=== PATIENT | female | born 1935 | race African-American/Black ===

== ENCOUNTER 2017-06-10 21:09 | Emergency (ER) | payer MEDICARE, OTHER ==
[~2017-06-10] VITALS: Ht 167.6 cm; Wt 72.0 kg
[~2017-06-10 21:09] MED LIST: CARD12 PO; CLON0.2T PO; FLUT1DIS3 INH; POTASSIUM; VITAMIN D
[2017-06-10 23:53] LABS: CLARITY URINE CLEAR (CLEAR); COLOR URINE YELLOW (YELLOW); GLUCOSE URINE NEGATIVE (NEGATIVE); KETONES URINE NEGATIVE (NEGATIVE); LEUKOCYTE ESTERASE URINE NEGATIVE (NEGATIVE); NITRITE URINE NEGATIVE (NEGATIVE); OCCULT BLOOD URINE TRACE (NEGATIVE); PH URINE 5.5 (4.5-8.0); PROTEIN URINE NEGATIVE (NEGATIVE); SPECIFIC GRAVITY URINE 1.011 (1.005-1.030)
[2017-06-11 00:02] LABS: BASOPHILS % 0.9 % (0.0-2.0); EOSINOPHILS % 4.4 % (0.0-5.0); HEMATOCRIT. 36.6 % (36.0-48.0); HEMOGLOBIN. 11.7 g/dL (12.0-16.0); LYMPHOCYTES % 24.2 % (20.0-50.0); MEAN CORPUSCULAR HEMOGLOBIN 24.2 pg (28.0-32.0); MEAN CORPUSCULAR VOLUME 75.7 fL (81.0-99.0); MEAN PLATELET VOLUME 8.3 fl (7.4-10.4); MONOCYTES % 10.1 % (2.0-8.0); NEUTROPHILS % 60.4 % (40.0-76.0); PLATELET 231 x1000/uL (130-400); RED BLOOD CELL COUNT 4.83 mill/uL (4.2-5.4); RED CELL DISTRIBUTION WIDTH 13.5 % (11.6-14.6)
[2017-06-11 00:15] LABS: CHLORIDE 107 mEq/L (98-107)
[2017-06-11 00:24] LABS: CARBON DIOXIDE 25 mEq/L (21-32); ETHANOL BLOOD < 10 mg/dL
[2017-06-11 00:24] LABS: *AMPHETAMINES SCREEN URINE NEGATIVE (NEGATIVE); *BARBITURATES SCREEN URINE NEGATIVE (NEGATIVE); *BENZODIAZEPINES SCREEN URINE NEGATIVE (NEGATIVE); *COCAINE SCREEN URINE NEGATIVE (NEGATIVE); CANNABINOID URINE SCREEN NEGATIVE (NEGATIVE); METHADONE URINE SCREEN NEGATIVE (NEGATIVE); OPIATES URINE SCREEN NEGATIVE (NEGATIVE); PHENCYCLIDINE URINE SCREEN NEGATIVE (NEGATIVE)
[2017-06-11 16:14] VITALS: BP 125/60
== END 2017-06-11 16:16 | disposition home or self-care (01) ==
LOC: ER 21:12
DX: F03.90 Unspecified dementia, unspecified severity, without behavioral disturbance, psychotic disturbance, mood disturbance, and anxiety (principal); R41.0 Disorientation, unspecified; I10 Essential (primary) hypertension; J45.909 Unspecified asthma, uncomplicated; Z88.5 Allergy status to narcotic agent; Z88.8 Allergy status to other drugs, medicaments and biological substances; Z71.89 Other specified counseling
CPT/HCPCS: 36415; 70450; 80053; 80305; 81001; 85025; 86592; 99285; G0482

== ENCOUNTER 2018-04-24 19:54 | Emergency (ER) | payer OTHER ==
[~2018-04-24] VITALS: Ht 175.3 cm; Wt 79.0 kg
[~2018-04-24 19:54] MED LIST changes: +AMLO10TA80 PO; +BENA20TA10 PO; +CHOL500010 PO; +DONE10TA36 PO; +FLUT1DIS3 IH; +MIRT15TA6 PO; -POTASSIUM; -VITAMIN D
[2018-04-24] MEDS ORDERED: SODIUM CHLORIDE 0.9% 1,000 ML IV ONE (20:07)
[2018-04-24] MEDS ORDERED: PANTOPRAZOLE SODIUM 40 MG/VIAL IV STA (20:07)
[2018-04-24] MEDS ORDERED: KETOROLAC 30MG/ML VIAL IV STA (20:07)
[2018-04-24] MEDS ORDERED: ONDANSETRON HCL 4MG/2ML INJ IV STA (20:07)
[2018-04-24 21:11] LABS: CHLORIDE 109 mEq/L (98-107)
[2018-04-24 21:13] LABS: PROTHROMBIN TIME 10.2 sec (9.1-11.1)
[2018-04-24 22:03] LABS: HEMATOCRIT. 37.9 % (36.0-48.0); HEMOGLOBIN. 11.6 g/dL (12.0-16.0); MEAN CORPUSCULAR VOLUME 78.1 fL (81.0-99.0); MEAN PLATELET VOLUME 8.8 fl (7.4-10.4); PLATELET 180 x1000/uL (130-400); RED BLOOD CELL COUNT 4.86 mill/uL (4.2-5.4); RED CELL DISTRIBUTION WIDTH 13.2 % (11.6-14.6)
[2018-04-24 22:28] LABS: PLATELET ESTIMATE NORMAL
[2018-04-24 22:49] LABS: CLARITY URINE CLEAR (CLEAR); COLOR URINE DARK YELLOW (YELLOW); KETONES URINE NEGATIVE (NEGATIVE); LEUKOCYTE ESTERASE URINE NEGATIVE (NEGATIVE); NITRITE URINE NEGATIVE (NEGATIVE); OCCULT BLOOD URINE NEGATIVE (NEGATIVE); PH URINE 5.5 (4.5-8.0); PROTEIN URINE NEGATIVE (NEGATIVE); SPECIFIC GRAVITY URINE 1.018 (1.005-1.030)
[2018-04-24 23:37] VITALS: BP 126/78
== END 2018-04-24 23:46 | disposition home or self-care (01) ==
LOC: EDBD 20:10 → ER 20:10
DX: R19.7 Diarrhea, unspecified (principal); R10.33 Periumbilical pain; R11.2 Nausea with vomiting, unspecified; R07.9 Chest pain, unspecified; E78.00 Pure hypercholesterolemia, unspecified; I10 Essential (primary) hypertension; Z88.5 Allergy status to narcotic agent; Z79.899 Other long term (current) drug therapy
CPT/HCPCS: 36415; 74176; 80053; 81003; 83690; 85025; 85610; 93005; 96374; 96375; 99285; C9113; J1885; J2405; J7030; 99291

== ENCOUNTER 2018-07-23 03:04 | Emergency (ER) | payer OTHER ==
[~2018-07-23] VITALS: Ht 167.6 cm; Wt 73.0 kg
[2018-07-23 04:51] LABS: HEMATOCRIT. 36.9 % (36.0-48.0); HEMOGLOBIN. 11.4 g/dL (12.0-16.0); MEAN CORPUSCULAR HEMOGLOBIN 23.7 pg (28.0-32.0); MEAN PLATELET VOLUME 8.6 fl (7.4-10.4); PLATELET 229 x1000/uL (130-400); RED CELL DISTRIBUTION WIDTH 13.3 % (11.6-14.6)
[2018-07-23 04:53] LABS: CHLORIDE 106 mEq/L (98-107)
[2018-07-23 05:45] VITALS: BP 108/62
[2018-07-23 07:05] LABS: CLARITY URINE CLOUDY (CLEAR); COLOR URINE YELLOW (YELLOW); KETONES URINE TRACE (NEGATIVE); LEUKOCYTE ESTERASE URINE 1+ (NEGATIVE); NITRITE URINE NEGATIVE (NEGATIVE); OCCULT BLOOD URINE NEGATIVE (NEGATIVE); PH URINE 5.5 (4.5-8.0); PROTEIN URINE NEGATIVE (NEGATIVE); SPECIFIC GRAVITY URINE 1.028 (1.005-1.030)
[2018-07-23 10:00] LABS: PLATELET ESTIMATE NORMAL
== END 2018-07-23 05:45 | disposition home or self-care (01) ==
LOC: ER 03:04
DX: R41.82 Altered mental status, unspecified (principal); E78.00 Pure hypercholesterolemia, unspecified; I10 Essential (primary) hypertension; E16.2 Hypoglycemia, unspecified; F03.90 Unspecified dementia, unspecified severity, without behavioral disturbance, psychotic disturbance, mood disturbance, and anxiety; Z79.899 Other long term (current) drug therapy; Z88.5 Allergy status to narcotic agent; Z88.8 Allergy status to other drugs, medicaments and biological substances
CPT/HCPCS: 36415; 71045; 80048; 82962; 99284

== ENCOUNTER 2019-02-20 11:25 | Inpatient (IN) | payer OTHER ==
[~2019-02-20] VITALS: Ht 162.6 cm; Wt 61.7 kg
[2019-02-20] MEDS ORDERED: TETANUS, DIPHTHERIA, PERTUSSIS VAC/PF 0.5ML (>7YR OLD) IM ONE (13:00)
[2019-02-20 13:33] LABS: BASOPHILS % 0.8 % (0.0-2.0); EOSINOPHILS % 0.8 % (0.0-5.0); HEMATOCRIT. 38.9 % (36.0-48.0); HEMOGLOBIN. 12.3 g/dL (12.0-16.0); LYMPHOCYTES % 14.4 % (20.0-50.0); MEAN CORPUSCULAR HEMOGLOBIN 24.6 pg (28.0-32.0); MEAN CORPUSCULAR VOLUME 78.1 fL (81.0-99.0); MEAN PLATELET VOLUME 8.6 fl (7.4-10.4); MONOCYTES % 7.7 % (2.0-8.0); NEUTROPHILS % 76.3 % (40.0-76.0); PLATELET 236 x1000/uL (130-400); RED BLOOD CELL COUNT 4.98 mill/uL (4.2-5.4); RED CELL DISTRIBUTION WIDTH 13.6 % (11.6-14.6)
[2019-02-20 13:38] LABS: CHLORIDE 107 mEq/L (98-107)
[2019-02-20 15:25] LABS: CLARITY URINE CLEAR (CLEAR); COLOR URINE YELLOW (YELLOW); KETONES URINE 1+ (NEGATIVE); LEUKOCYTE ESTERASE URINE NEGATIVE (NEGATIVE); NITRITE URINE NEGATIVE (NEGATIVE); OCCULT BLOOD URINE TRACE (NEGATIVE); PH URINE 5.5 (4.5-8.0); PROTEIN URINE NEGATIVE (NEGATIVE); SPECIFIC GRAVITY URINE 1.021 (1.005-1.030)
[2019-02-20] MEDS ORDERED: HYDROCODONE/ACETAMINOPHEN 5/325MG TABLET PO PRN (18:30)
[2019-02-20] MEDS ORDERED: IPRATROPIUM/ALBUTEROL 0.5-3(2.5)MG/3ML NEB INH PRN (18:30)
[2019-02-20] MEDS ORDERED: ACETAMINOPHEN 325MG TABLET PO PRN (18:30)
[2019-02-20] MEDS ORDERED: CLONIDINE 0.1MG TABLET PO PRN (18:30)
[2019-02-20] MEDS ORDERED: ONDANSETRON HCL 4MG/2ML INJ IV PRN (18:30)
[2019-02-20 21:04] VITALS: BP 129/66
[2019-02-20 21:14] VITALS: BP 129/66
[2019-02-20] MEDS ORDERED: SODIUM CHLORIDE 0.45% 1,000 ML IV SCH (22:15)
[2019-02-21 00:05] VITALS: BP 108/69
[2019-02-21 04:00] VITALS: BP 135/65
[2019-02-21 08:16] VITALS: BP 103/67
[2019-02-21] MEDS ORDERED: ENOXAPARIN 40MG/0.4ML SYR SUBCUT SCH (09:00)
[2019-02-21 09:17] LABS: BASOPHILS % 0.7 % (0.0-2.0); EOSINOPHILS % 2.1 % (0.0-5.0); HEMATOCRIT. 38.2 % (36.0-48.0); LYMPHOCYTES % 27.9 % (20.0-50.0); MEAN CORPUSCULAR HEMOGLOBIN 24.3 pg (28.0-32.0); MEAN CORPUSCULAR VOLUME 77.2 fL (81.0-99.0); MEAN PLATELET VOLUME 8.8 fl (7.4-10.4); MONOCYTES % 10.6 % (2.0-8.0); NEUTROPHILS % 58.7 % (40.0-76.0); PLATELET 212 x1000/uL (130-400); RED BLOOD CELL COUNT 4.95 mill/uL (4.2-5.4); RED CELL DISTRIBUTION WIDTH 13.6 % (11.6-14.6)
[2019-02-21 09:29] LABS: CHLORIDE 106 mEq/L (98-107)
[2019-02-21 09:39] LABS: LDL CHOLESTEROL 90 mg/dL (5-100)
[2019-02-21 09:41] LABS: HDL CHOLESTEROL 83 mg/dL (40-59); T4 FREE 0.91 ng/dL (0.76-1.46)
[2019-02-21] MEDS ORDERED: POTASSIUM CHLORIDE 20MEQ TABLET SR PO NR (10:00)
[2019-02-21] MEDS ORDERED: PROAIR HFA INH (10:23)
[2019-02-21] MEDS ORDERED: RISP1TAB26 PO (10:23)
[2019-02-21] MEDS ORDERED: DOCU-272 MT (10:23)
[2019-02-21] MEDS ORDERED: POTASSIUM CHL PO (10:23)
[2019-02-21] MEDS ORDERED: CEPHALEXIN 250MG CAPSULE PO SCH (10:30)
[2019-02-21 12:16] VITALS: BP 122/62
[2019-02-21 16:13] VITALS: BP 132/66
[2019-02-21 16:24] VITALS: BP 132/66
== END 2019-02-21 18:40 | disposition home health service (06) | DRG 689 ==
LOC: ER 11:25 → EDBEDREQ 17:26 → EDBEDREQTM 17:26 → EDBEDREQ 17:31 → EDBEDREQSVC 17:49 → 6WST 17:49 → EDBEDREQ 17:49 → ENRESERV 18:24 → 6WST 22:07
PROVIDERS: ADMIT Internal Medicine; ATTEND Internal Medicine
DX: N39.0 Urinary tract infection, site not specified (principal); G93.41 Metabolic encephalopathy; E87.6 Hypokalemia; F03.90 Unspecified dementia, unspecified severity, without behavioral disturbance, psychotic disturbance, mood disturbance, and anxiety; I10 Essential (primary) hypertension; S80.212A Abrasion, left knee, initial encounter; Z79.899 Other long term (current) drug therapy; Z96.642 Presence of left artificial hip joint; Z88.6 Allergy status to analgesic agent; W18.30XA Fall on same level, unspecified, initial encounter; Y92.009 Unspecified place in unspecified non-institutional (private) residence as the place of occurrence of the external cause; Z86.73 Personal history of transient ischemic attack (TIA), and cerebral infarction without residual deficits; Y93.89 Activity, other specified; Y99.8 Other external cause status
CPT/HCPCS: 36415; 71045; 72170; 73562; 80061; 81003; 83735; 83880; 84439; 84443; 84484; 90471; 90715; 93005; 93306; 93880; 97162; 99285; J1650

== ENCOUNTER 2019-05-05 10:00 | Inpatient (IN) | payer OTHER ==
[~2019-05-05] VITALS: Ht 165.1 cm; Wt 57.2 kg
[~2019-05-05 10:00] MED LIST changes: -AMLO10TA80 PO; -BENA20TA10 PO; -CARD12 PO; -CHOL500010 PO; -CLON0.2T PO; +DOCU-272 MT; -FLUT1DIS3 IH; -MIRT15TA6 PO; +POTASSIUM CHL PO; +PROAIR HFA INH; +RISP1TAB26 PO
[2019-05-05] MEDS ORDERED: SODIUM CHLORIDE 0.9% 1,000 ML IV ONE (10:15)
[2019-05-05 11:10] LABS: BASOPHILS % 1.6 % (0.0-2.0); EOSINOPHILS % 2.5 % (0.0-5.0); HEMATOCRIT. 40.3 % (36.0-48.0); HEMOGLOBIN. 12.7 g/dL (12.0-16.0); LYMPHOCYTES % 22.1 % (20.0-50.0); MEAN CORPUSCULAR HEMOGLOBIN 24.8 pg (28.0-32.0); MEAN CORPUSCULAR VOLUME 78.9 fL (81.0-99.0); MEAN PLATELET VOLUME 8.9 fl (7.4-10.4); MONOCYTES % 9.6 % (2.0-8.0); NEUTROPHILS % 64.2 % (40.0-76.0); PLATELET 230 x1000/uL (130-400); RED BLOOD CELL COUNT 5.11 mill/uL (4.2-5.4); RED CELL DISTRIBUTION WIDTH 13.7 % (11.6-14.6)
[2019-05-05 11:19] LABS: CHLORIDE 105 mEq/L (98-107)
[2019-05-05 14:40] LABS: CLARITY URINE CLEAR (CLEAR); COLOR URINE YELLOW (YELLOW); KETONES URINE NEGATIVE (NEGATIVE); LEUKOCYTE ESTERASE URINE NEGATIVE (NEGATIVE); NITRITE URINE NEGATIVE (NEGATIVE); OCCULT BLOOD URINE NEGATIVE (NEGATIVE); PH URINE 7.5 (4.5-8.0); PROTEIN URINE NEGATIVE (NEGATIVE); SPECIFIC GRAVITY URINE 1.012 (1.005-1.030)
[2019-05-05 21:00] VITALS: BP 124/55
[2019-05-05] MEDS ORDERED: DEXT 5% WATER + KCL 20MEQ/L 1,000 ML IV SCH (23:00)
[2019-05-05 23:05] VITALS: BP 124/55
[2019-05-05] MEDS: POTASSIUM CHLORIDE INJ 20 MEQ in DEXTROSE 5% WATER 1,000 ML IV SCH (23:56)
[2019-05-06] VITALS: BP 142/63
[2019-05-06] MEDS ORDERED: HYDROMORPHONE HCL/PF 2MG/ML CPJ IV PRN (02:45)
[2019-05-06] MEDS ORDERED: LORAZEPAM 2MG/ML CPJ IV PRN (02:45)
[2019-05-06 04:00] VITALS: BP 122/53
[2019-05-06 07:50] LABS: HEMATOCRIT. 37.1 % (36.0-48.0); HEMOGLOBIN. 11.4 g/dL (12.0-16.0); MEAN CORPUSCULAR HEMOGLOBIN 24.7 pg (28.0-32.0); MEAN CORPUSCULAR VOLUME 80.4 fL (81.0-99.0); PLATELET 191 x1000/uL (130-400); RED BLOOD CELL COUNT 4.61 mill/uL (4.2-5.4); RED CELL DISTRIBUTION WIDTH 13.7 % (11.6-14.6)
[2019-05-06 07:56] LABS: CHLORIDE 109 mEq/L (98-107)
[2019-05-06 08:00] VITALS: BP 132/66
[2019-05-06] MEDS: ENOXAPARIN 40MG/0.4ML SYR SUBCUT SCH (10:42)
[2019-05-06 12:00] VITALS: BP 139/74
[2019-05-06] MEDS: POTASSIUM CHLORIDE INJ 20 MEQ in DEXTROSE 5% WATER 1,000 ML IV SCH (13:23)
[2019-05-06 14:28] LABS: PLATELET ESTIMATE NORMAL
[2019-05-06] MEDS ORDERED: IPRATROPIUM/ALBUTEROL 0.5-3(2.5)MG/3ML NEB HHN PRN (15:00)
[2019-05-06] MEDS ORDERED: LACTULOSE 20G/30ML UDC PO PRN (15:00)
[2019-05-06] MEDS ORDERED: HYDRALAZINE 20MG/ML VIAL IV PRN (15:00)
[2019-05-06] MEDS ORDERED: HYDROCODONE/ACETAMINOPHEN 5/325MG TABLET PO PRN (15:00)
[2019-05-06 15:42] LABS: BG CARBOXYHEMOGLOBIN 1.2 % (0.5-1.5); BG DEOXYHEMOGLOBIN 2.8 % (0.0-5.0); BG HCO3 ACT 26.4 mmol/L (22.0-26.0); BG METHEMOGLOBIN 0.2 % (0.0-1.5); BG OXYGEN SATURATION 97.2 % (92.0-98.5); BG OXYHEMOGLOBIN 95.8 % (94.0-97.0); BG PCO2 40.3 mmHg (35.0-45.0); BG PH 7.434 (7.350-7.450); BG PO2 86.1 mmHg (75.0-100.0); BG SAMPLE SITE RIGHT RADIAL; BG TOTAL HEMOGLOBIN 12.8 g/dL (12.0-18.0); BG VENT MODE ROOM AIR
[2019-05-06 16:00] VITALS: BP 128/79
[2019-05-06] MEDS: LORAZEPAM 2MG/ML CPJ IV PRN (17:07)
[2019-05-06 20:00] VITALS: BP 154/82
[2019-05-06] MEDS: DIPHENHYDRAMINE 50MG/ML VIAL IV PRN (20:03)
[2019-05-07] MEDS: POTASSIUM CHLORIDE INJ 20 MEQ in DEXTROSE 5% WATER 1,000 ML IV SCH ×2 (00:11→17:12)
[2019-05-07] MEDS: DIPHENHYDRAMINE 50MG/ML VIAL IV PRN ×2 (03:21→20:28)
[2019-05-07 04:00] VITALS: BP 161/86
[2019-05-07] MEDS: LORAZEPAM 2MG/ML CPJ IV PRN (04:29)
[2019-05-07 08:00] VITALS: BP 130/68
[2019-05-07 12:00] VITALS: BP 128/79
[2019-05-07] MEDS ORDERED: ACETAMINOPHEN 650MG SUPP PR PRN (12:30)
[2019-05-07] MEDS ORDERED: ACETAMINOPHEN 325MG TABLET PO PRN (12:30)
[2019-05-07] MEDS ORDERED: TRAMADOL 50MG TABLET PO PRN (12:30)
[2019-05-07 16:00] VITALS: BP 118/70
[2019-05-07] MEDS: ENOXAPARIN 40MG/0.4ML SYR SUBCUT SCH (16:42)
[2019-05-07 16:53] LABS: BG BASE EXCESS 0.7 mmol/L (-2.0-2.0); BG DEOXYHEMOGLOBIN 2.9 % (0.0-5.0); BG FRACTION INSPIRED OXYGEN 21; BG HCO3 ACT 24.4 mmol/L (22.0-26.0); BG METHEMOGLOBIN 0.3 % (0.0-1.5); BG OXYGEN SATURATION 97.1 % (92.0-98.5); BG OXYHEMOGLOBIN 95.8 % (94.0-97.0); BG PCO2 36.1 mmHg (35.0-45.0); BG PH 7.448 (7.350-7.450); BG PO2 85.9 mmHg (75.0-100.0); BG SAMPLE SITE RIGHT BRACHIAL; BG TOTAL HEMOGLOBIN 13.2 g/dL (12.0-18.0); BG VENT MODE ROOM AIR
[2019-05-07 17:57] LABS: HEMATOCRIT 43.9 % (36.0-48.0); HEMOGLOBIN 13.7 g/dL (12.0-16.0); MEAN CORPUSCULAR HEMOGLOBIN 24.5 pg (28.0-32.0); MEAN CORPUSCULAR VOLUME 78.5 fL (81.0-99.0); PLATELET 231 x1000/uL (130-400); RED BLOOD CELL COUNT 5.59 mill/uL (4.2-5.4); RED CELL DISTRIBUTION WIDTH 13.8 % (11.6-14.6)
[2019-05-07] MEDS ORDERED: LORAZEPAM 2MG/ML CPJ IV SCH (18:00)
[2019-05-07 18:06] LABS: CHLORIDE 104 mEq/L (98-107)
[2019-05-07 18:13] LABS: LDL CHOLESTEROL 109 mg/dL (5-100)
[2019-05-07 18:15] LABS: HDL CHOLESTEROL 92 mg/dL (40-59); T4 FREE 1.09 ng/dL (0.76-1.46)
[2019-05-07 20:00] VITALS: BP 138/65
[2019-05-08] VITALS: BP 135/97
[2019-05-08 04:00] VITALS: BP 137/77
[2019-05-08] MEDS: DIPHENHYDRAMINE 50MG/ML VIAL IV PRN (04:52)
[2019-05-08 07:35] LABS: CHLORIDE 103 mEq/L (98-107)
[2019-05-08 07:37] LABS: HEMATOCRIT 41.6 % (36.0-48.0); HEMOGLOBIN 13.5 g/dL (12.0-16.0); PLATELET 254 x1000/uL (130-400); RED CELL DISTRIBUTION WIDTH 13.5 % (11.6-14.6)
[2019-05-08 08:00] VITALS: BP 150/90
[2019-05-08 12:00] VITALS: BP 143/79
[2019-05-08] MEDS ORDERED: ATOR10TA MT (14:13)
[2019-05-08 16:00] VITALS: BP 112/51
[2019-05-08] MEDS: ENOXAPARIN 40MG/0.4ML SYR SUBCUT SCH (17:05)
== END 2019-05-08 18:58 | disposition home or self-care (01) | DRG 70 ==
LOC: ER 10:00 → 7WST 16:05 → EDBEDREQ 16:13 → EDBEDREQTM 16:15 → ENRESERV 20:01
PROVIDERS: ADMIT Internal Medicine; ATTEND Internal Medicine
DX: G93.41 Metabolic encephalopathy (principal); I50.33 Acute on chronic diastolic (congestive) heart failure; G90.8 Other disorders of autonomic nervous system; E86.0 Dehydration; F03.90 Unspecified dementia, unspecified severity, without behavioral disturbance, psychotic disturbance, mood disturbance, and anxiety; I10 Essential (primary) hypertension; I27.20 Pulmonary hypertension, unspecified; I44.0 Atrioventricular block, first degree; E03.9 Hypothyroidism, unspecified; E78.5 Hyperlipidemia, unspecified; J45.909 Unspecified asthma, uncomplicated; Z79.899 Other long term (current) drug therapy; Z88.5 Allergy status to narcotic agent; Z88.8 Allergy status to other drugs, medicaments and biological substances
CPT/HCPCS: 36415; 36600; 70551; 71045; 80048; 80061; 81003; 82140; 82375; 82805; 82962; 84439; 84443; 84484; 85027; 92610; 93005; 95816; 99285; C1893; J0360; J1200; J1650; J2060; J3480; J7030; J7060; J7070

== ENCOUNTER 2019-06-11 16:29 | Emergency (ER) | payer OTHER ==
[~2019-06-11] VITALS: Ht 162.6 cm; Wt 65.0 kg
[~2019-06-11 16:29] MED LIST changes: +ATOR10TA MT; -DONE10TA36 PO; -POTASSIUM CHL PO
[2019-06-11] MEDS ORDERED: SODIUM CHLORIDE 0.9% 1,000 ML IV ONE (17:29)
[2019-06-11] MEDS ORDERED: ONDANSETRON HCL 4MG/2ML INJ IV STA (17:29)
[2019-06-11 17:52] LABS: HEMATOCRIT. 37.7 % (36.0-48.0); HEMOGLOBIN. 12.1 g/dL (12.0-16.0); MEAN CORPUSCULAR VOLUME 78.3 fL (81.0-99.0); MEAN PLATELET VOLUME 9.1 fl (7.4-10.4); PLATELET 207 x1000/uL (130-400); RED BLOOD CELL COUNT 4.81 mill/uL (4.2-5.4)
[2019-06-11 18:12] LABS: PLATELET ESTIMATE NORMAL
[2019-06-11 18:28] VITALS: BP 144/92
[2019-06-11 21:37] LABS: CHLORIDE 108 mEq/L (98-107)
== END 2019-06-11 20:08 | disposition home or self-care (01) ==
LOC: ER 17:35
DX: R11.2 Nausea with vomiting, unspecified (principal); J45.909 Unspecified asthma, uncomplicated; F03.90 Unspecified dementia, unspecified severity, without behavioral disturbance, psychotic disturbance, mood disturbance, and anxiety; I10 Essential (primary) hypertension; Z88.6 Allergy status to analgesic agent; Z88.8 Allergy status to other drugs, medicaments and biological substances
CPT/HCPCS: 36415; 80053; 83690; 85025; 96360; 99283; J7030

== ENCOUNTER 2019-07-13 21:31 | Inpatient (IN) | payer OTHER ==
[~2019-07-13] VITALS: Ht 167.6 cm; Wt 57.6 kg
[~2019-07-13 21:31] MED LIST changes: +DONE10TA43 MT; +POTA10CA42 MT
[2019-07-13] MEDS ORDERED: MORPHINE SULFATE 4 MG/ML CPJ (NOT FOR IM USE) IV ONE (23:00)
[2019-07-13 23:05] LABS: CHLORIDE 103 mEq/L (98-107)
[2019-07-13 23:06] LABS: BASOPHILS % 0.7 % (0.0-2.0); EOSINOPHILS % 0.6 % (0.0-5.0); HEMATOCRIT. 34.4 % (36.0-48.0); HEMOGLOBIN. 10.7 g/dL (12.0-16.0); LYMPHOCYTES % 19.8 % (20.0-50.0); MEAN CORPUSCULAR HEMOGLOBIN 24.8 pg (28.0-32.0); MEAN CORPUSCULAR VOLUME 79.5 fL (81.0-99.0); MONOCYTES % 11.8 % (2.0-8.0); NEUTROPHILS % 67.1 % (40.0-76.0); PLATELET 448 x1000/uL (130-400); RED BLOOD CELL COUNT 4.33 mill/uL (4.2-5.4); RED CELL DISTRIBUTION WIDTH 13.6 % (11.6-14.6)
[2019-07-13 23:57] LABS: PARTIAL THROMBOPLASTIN TIME 26.4 sec (23.4-31.0); PROTHROMBIN TIME 10.4 sec (9.6-11.0)
[2019-07-14 12:55] VITALS: BP 136/62
[2019-07-14] MEDS ORDERED: IPRATROPIUM/ALBUTEROL 0.5-3(2.5)MG/3ML NEB NEB PRN (14:00)
[2019-07-14] MEDS ORDERED: GUAIFENESIN 200MG/10ML SUGAR FREE UDC PO PRN (14:00)
[2019-07-14] MEDS ORDERED: DIPHENHYDRAMINE 50MG/ML VIAL IV PRN (14:00)
[2019-07-14] MEDS ORDERED: ONDANSETRON HCL 4MG/2ML INJ IV PRN (14:00)
[2019-07-14] MEDS ORDERED: CLONIDINE 0.1MG TABLET PO PRN (14:00)
[2019-07-14] MEDS ORDERED: NA PHOS,M-B/NA PHOS,DI-BA ENEMA 118ML PR PRN (14:00)
[2019-07-14] MEDS ORDERED: DOCUSATE SODIUM 100MG CAPSULE PO PRN (14:00)
[2019-07-14] MEDS ORDERED: HYDROCODONE/ACETAMINOPHEN 5/325MG TABLET PO PRN (14:00)
[2019-07-14] MEDS ORDERED: MAGNESIUM/ALUMINUM HYDROXIDE/SIMETHICONE 30ML UDC PO PRN (14:00)
[2019-07-14] MEDS ORDERED: ACETAMINOPHEN 650MG SUPP PR PRN (14:00)
[2019-07-14] MEDS: SODIUM CHLORIDE 0.45% 1,000 ML IV SCH (14:00)
[2019-07-14 15:00] VITALS: BP 136/62
[2019-07-14] MEDS ORDERED: ENOXAPARIN 40MG/0.4ML SYR SUBCUT SCH (15:00)
[2019-07-14 20:00] VITALS: BP 136/68
[2019-07-14] MEDS: RISPERIDONE 0.5MG TABLET PO SCH (20:39)
[2019-07-15] VITALS: BP 128/68
[2019-07-15 01:42] LABS: CREATINE KINASE 89 IU/L (26-192)
[2019-07-15 01:43] LABS: CREATINE KINASE MB FRACTION 1.1 ng/mL (0.5-3.6)
[2019-07-15 04:00] VITALS: BP 133/81
[2019-07-15] MEDS: SODIUM CHLORIDE 0.45% 1,000 ML IV SCH ×2 (06:40→20:55)
[2019-07-15 08:00] VITALS: BP 114/60
[2019-07-15 10:13] LABS: BASOPHILS % 0.6 % (0.0-2.0); EOSINOPHILS % 0.4 % (0.0-5.0); HEMATOCRIT. 33.9 % (36.0-48.0); HEMOGLOBIN. 10.5 g/dL (12.0-16.0); LYMPHOCYTES % 13.4 % (20.0-50.0); MEAN CORPUSCULAR HEMOGLOBIN 24.2 pg (28.0-32.0); MEAN CORPUSCULAR VOLUME 78.5 fL (81.0-99.0); MEAN PLATELET VOLUME 7.7 fl (7.4-10.4); MONOCYTES % 10.6 % (2.0-8.0); PLATELET 414 x1000/uL (130-400); RED BLOOD CELL COUNT 4.32 mill/uL (4.2-5.4); RED CELL DISTRIBUTION WIDTH 13.4 % (11.6-14.6)
[2019-07-15 10:24] LABS: CHLORIDE 106 mEq/L (98-107)
[2019-07-15 12:00] VITALS: BP 114/73
[2019-07-15 16:00] VITALS: BP 118/65
[2019-07-15 20:00] VITALS: BP 126/64
[2019-07-15] MEDS: RISPERIDONE 0.5MG TABLET PO SCH (20:54)
[2019-07-16] VITALS: BP 141/57
[2019-07-16 04:00] VITALS: BP 132/60
[2019-07-16] MEDS: MORPHINE SULFATE 2 MG/ML CPJ (NOT FOR IM USE) IV PRN (06:07)
[2019-07-16] MEDS: SODIUM CHLORIDE 0.45% 1,000 ML IV SCH (06:09)
[2019-07-16 08:00] VITALS: BP 125/54
[2019-07-16 08:03] LABS: HEMATOCRIT 30.4 % (36.0-48.0); HEMOGLOBIN 9.7 g/dL (12.0-16.0); MEAN CORPUSCULAR HEMOGLOBIN 24.6 pg (28.0-32.0); MEAN CORPUSCULAR VOLUME 77.4 fL (81.0-99.0); PLATELET 409 x1000/uL (130-400); RED BLOOD CELL COUNT 3.93 mill/uL (4.2-5.4); RED CELL DISTRIBUTION WIDTH 13.2 % (11.6-14.6)
[2019-07-16 08:34] LABS: CHLORIDE 106 mEq/L (98-107)
[2019-07-16 12:00] VITALS: BP 114/59
[2019-07-16 16:00] VITALS: BP_SYST 118; BP_SYST 119; BP_DIAS 54; BP_DIAS 59
[2019-07-16] MEDS: ACETAMINOPHEN 325MG TABLET PO PRN (16:26)
[2019-07-16] MEDS: RISPERIDONE 0.5MG TABLET PO SCH (22:46)
[2019-07-17] VITALS: BP 98/66
[2019-07-17] MEDS: LORAZEPAM 0.5MG TABLET PO PRN (01:27)
[2019-07-17 04:00] VITALS: BP 133/56
[2019-07-17 06:29] LABS: CHLORIDE 102 mEq/L (98-107)
[2019-07-17 06:37] LABS: BASOPHILS % 0.8 % (0.0-2.0); EOSINOPHILS % 0.7 % (0.0-5.0); HEMATOCRIT. 32.2 % (36.0-48.0); HEMOGLOBIN. 10.3 g/dL (12.0-16.0); LYMPHOCYTES % 14.9 % (20.0-50.0); MEAN CORPUSCULAR HEMOGLOBIN 24.7 pg (28.0-32.0); MEAN CORPUSCULAR VOLUME 77.2 fL (81.0-99.0); MEAN PLATELET VOLUME 7.4 fl (7.4-10.4); MONOCYTES % 12.1 % (2.0-8.0); NEUTROPHILS % 71.5 % (40.0-76.0); PLATELET 437 x1000/uL (130-400); RED BLOOD CELL COUNT 4.17 mill/uL (4.2-5.4); RED CELL DISTRIBUTION WIDTH 13.5 % (11.6-14.6)
[2019-07-17] MEDS ORDERED: BUPIVACAINE HCL/PF 0.25% (2.5MG/ML) 10ML ONE (07:23)
[2019-07-17] MEDS ORDERED: BACITRACIN 50,000 UNITS/VIAL ONE (07:23)
[2019-07-17] MEDS ORDERED: VANCOMYCIN HCL 1 GM/VIAL ONE (07:23)
[2019-07-17 08:00] VITALS: BP 131/44
[2019-07-17] MEDS: MORPHINE SULFATE 2 MG/ML CPJ (NOT FOR IM USE) IV PRN ×3 (09:34→18:28)
[2019-07-17] MEDS: SODIUM CHLORIDE 0.45% 1,000 ML IV SCH (09:38)
[2019-07-17] MEDS ORDERED: POTASSIUM CHLORIDE 20MEQ/PACKET PO NR (10:30)
[2019-07-17 12:00] VITALS: BP 115/69
[2019-07-17 16:00] VITALS: BP 107/62
[2019-07-17 20:00] VITALS: BP 127/65
[2019-07-17] MEDS: RISPERIDONE 0.5MG TABLET PO SCH (21:23)
[2019-07-18] VITALS (7 sets, daily range): BP systolic 113–140; BP diastolic 54–66
[2019-07-18] MEDS: MORPHINE SULFATE 2 MG/ML CPJ (NOT FOR IM USE) IV PRN ×3 (00:53→13:08)
[2019-07-18] MEDS: SODIUM CHLORIDE 0.45% 1,000 ML IV SCH ×2 (01:20→23:35)
[2019-07-18 13:03] LABS: BASOPHILS % 0.7 % (0.0-2.0); HEMATOCRIT. 30.7 % (36.0-48.0); HEMOGLOBIN. 9.6 g/dL (12.0-16.0); LYMPHOCYTES % 18.3 % (20.0-50.0); MEAN CORPUSCULAR HEMOGLOBIN 24.5 pg (28.0-32.0); MEAN CORPUSCULAR VOLUME 78.2 fL (81.0-99.0); MEAN PLATELET VOLUME 7.5 fl (7.4-10.4); MONOCYTES % 12.7 % (2.0-8.0); NEUTROPHILS % 67.3 % (40.0-76.0); PLATELET 379 x1000/uL (130-400); RED BLOOD CELL COUNT 3.93 mill/uL (4.2-5.4); RED CELL DISTRIBUTION WIDTH 13.2 % (11.6-14.6)
[2019-07-18 13:10] LABS: CHLORIDE 104 mEq/L (98-107)
[2019-07-18] MEDS ORDERED: BUPIVACAINE HCL 0.5% (5MG/ML) 50ML ONE (13:44)
[2019-07-18] MEDS ORDERED: VANCOMYCIN HCL 1 GM/VIAL ONE (13:44)
[2019-07-18] MEDS ORDERED: HYDROMORPHONE HCL/PF 2MG/ML CPJ IV PRN ×2 (18:00→23:45)
[2019-07-18] MEDS ORDERED: ONDANSETRON HCL 4MG/2ML INJ IV PRN ×2 (18:00→19:45)
[2019-07-18] MEDS ORDERED: PROPOFOL 200MG/20ML VIAL IV ONE (18:25)
[2019-07-18] MEDS ORDERED: FENTANYL CITRATE/PF 50MCG/ML 2ML VIAL ONE (18:25)
[2019-07-18] MEDS ORDERED: MIDAZOLAM HCL 2 MG/2 ML VIAL ONE (18:25)
[2019-07-18] MEDS ORDERED: ONDANSETRON HCL 4MG/2ML INJ ONE (18:33)
[2019-07-18] MEDS ORDERED: ROCURONIUM BROMIDE 10MG/ML VIAL 5ML IV ONE (18:33)
[2019-07-18] MEDS ORDERED: DEXAMETHASONE 4MG/ML 1ML VIAL ONE (18:33)
[2019-07-18] MEDS ORDERED: BUPIVACAINE HCL/EPINEPHRINE/PF 0.5%/0.0005 10ML ONE (18:45)
[2019-07-18] MEDS ORDERED: CEFAZOLIN SODIUM 1000MG/VIAL ONE (18:49)
[2019-07-18] MEDS ORDERED: SODIUM CHLORIDE 0.9% 10ML VIAL ONE (18:49)
[2019-07-18] MEDS ORDERED: LIDOCAINE HCL/PF 1% 10 MG/ML 5ML VIAL ONE (18:49)
[2019-07-18] MEDS ORDERED: NORMAL SALINE 0.9% 10 ML SYR ONE (19:03)
[2019-07-18] MEDS ORDERED: BACITRACIN 50,000 UNITS/VIAL ONE (19:04)
[2019-07-18] MEDS ORDERED: GLYCOPYRROLATE 0.2 MG/ML 2ML VIAL ONE (19:14)
[2019-07-18] MEDS ORDERED: NEOSTIGMINE METHYLSULFATE 1MG/ML 10 ML VIAL ONE (19:14)
[2019-07-18] MEDS ORDERED: SKIN ADHESIVE 0.7 GM EA TOP ONE (19:22)
[2019-07-18] MEDS ORDERED: MEPERIDINE HCL/PF 25MG/ML CPJ IV PRN (19:45)
[2019-07-18] MEDS ORDERED: LABETALOL 5MG/ML SYR 20 MG/4 ML SYRINGE IV PRN (19:45)
[2019-07-18] MEDS: HYDROMORPHONE HCL/PF 2MG/ML CPJ IV PRN ×4 (19:50→20:33)
[2019-07-18] MEDS: RISPERIDONE 0.5MG TABLET PO SCH (22:00)
[2019-07-18] MEDS: LORAZEPAM 0.5MG TABLET PO PRN (22:00)
[2019-07-18] MEDS: CEFAZOLIN 1000MG PREMIX 50 ML IV SCH (23:35)
[2019-07-19] VITALS: BP 105/54
[2019-07-19 04:00] VITALS: BP 121/64
[2019-07-19] MEDS: CEFAZOLIN 1000MG PREMIX 50 ML IV SCH ×2 (05:38→14:40)
[2019-07-19 06:29] LABS: CHLORIDE 105 mEq/L (98-107); HEMATOCRIT. 30.6 % (36.0-48.0); HEMOGLOBIN. 9.7 g/dL (12.0-16.0); MEAN CORPUSCULAR HEMOGLOBIN 24.5 pg (28.0-32.0); MEAN CORPUSCULAR VOLUME 77.6 fL (81.0-99.0); MEAN PLATELET VOLUME 7.7 fl (7.4-10.4); PLATELET 381 x1000/uL (130-400); RED BLOOD CELL COUNT 3.95 mill/uL (4.2-5.4); RED CELL DISTRIBUTION WIDTH 13.6 % (11.6-14.6)
[2019-07-19 08:00] VITALS: BP 128/64
[2019-07-19] MEDS: ENOXAPARIN 40MG/0.4ML SYR SUBCUT SCH (08:08)
[2019-07-19 12:00] VITALS: BP 163/57
[2019-07-19] MEDS: HYDROCODONE/ACETAMINOPHEN 5/325MG TABLET PO PRN ×2 (12:06→21:28)
[2019-07-19 14:36] LABS: PLATELET ESTIMATE NORMAL
[2019-07-19 16:00] VITALS: BP 152/65
[2019-07-19] MEDS: SODIUM CHLORIDE 0.45% 1,000 ML IV SCH (17:59)
[2019-07-19 20:00] VITALS: BP 126/77
[2019-07-19] MEDS: RISPERIDONE 0.5MG TABLET PO SCH (20:09)
[2019-07-19] MEDS ORDERED: CEFAZOLIN 1000MG PREMIX 50 ML IV SCH (22:00)
[2019-07-20 00:05] VITALS: BP 141/78
[2019-07-20 04:00] VITALS: BP 146/56
[2019-07-20] MEDS: HYDROCODONE/ACETAMINOPHEN 5/325MG TABLET PO PRN ×2 (04:36→21:39)
[2019-07-20] MEDS: SODIUM CHLORIDE 0.45% 1,000 ML IV SCH ×2 (04:39→20:00)
[2019-07-20 08:00] VITALS: BP 104/58
[2019-07-20] MEDS: ENOXAPARIN 40MG/0.4ML SYR SUBCUT SCH (08:53)
[2019-07-20 11:48] LABS: BASOPHILS % 0.2 % (0.0-2.0); EOSINOPHILS % 0.8 % (0.0-5.0); HEMATOCRIT. 28.7 % (36.0-48.0); LYMPHOCYTES % 16.2 % (20.0-50.0); MEAN CORPUSCULAR HEMOGLOBIN 24.3 pg (28.0-32.0); MEAN CORPUSCULAR VOLUME 77.6 fL (81.0-99.0); MEAN PLATELET VOLUME 7.3 fl (7.4-10.4); MONOCYTES % 9.8 % (2.0-8.0); PLATELET 369 x1000/uL (130-400); RED CELL DISTRIBUTION WIDTH 13.5 % (11.6-14.6)
[2019-07-20 12:00] VITALS: BP 148/80
[2019-07-20 12:00] LABS: CHLORIDE 104 mEq/L (98-107)
[2019-07-20] MEDS ORDERED: POTASSIUM CHLORIDE 20MEQ TABLET SR PO SCH (13:15)
[2019-07-20 16:00] VITALS: BP 139/68
[2019-07-20 19:42] VITALS: BP 132/67
[2019-07-20] MEDS: RISPERIDONE 0.5MG TABLET PO SCH (21:12)
[2019-07-21] VITALS (8 sets, daily range): BP systolic 124–169; BP diastolic 60–88
[2019-07-21] MEDS: ENOXAPARIN 40MG/0.4ML SYR SUBCUT SCH (09:09)
[2019-07-21 09:12] LABS: CHLORIDE 106 mEq/L (98-107)
[2019-07-21 09:48] LABS: BASOPHILS % 0.7 % (0.0-2.0); EOSINOPHILS % 0.8 % (0.0-5.0); HEMATOCRIT. 32.3 % (36.0-48.0); HEMOGLOBIN. 10.2 g/dL (12.0-16.0); LYMPHOCYTES % 12.3 % (20.0-50.0); MEAN CORPUSCULAR HEMOGLOBIN 24.6 pg (28.0-32.0); MEAN CORPUSCULAR VOLUME 78.3 fL (81.0-99.0); MEAN PLATELET VOLUME 7.9 fl (7.4-10.4); MONOCYTES % 9.2 % (2.0-8.0); PLATELET 384 x1000/uL (130-400); RED BLOOD CELL COUNT 4.12 mill/uL (4.2-5.4); RED CELL DISTRIBUTION WIDTH 13.6 % (11.6-14.6)
[2019-07-21] MEDS: SODIUM CHLORIDE 0.45% 1,000 ML IV SCH (12:40)
[2019-07-21] MEDS: RISPERIDONE 0.5MG TABLET PO SCH (20:33)
[2019-07-22 00:02] VITALS: BP 122/68
[2019-07-22 04:00] VITALS: BP 113/71
[2019-07-22] MEDS: SODIUM CHLORIDE 0.45% 1,000 ML IV SCH ×2 (05:20→22:00)
[2019-07-22 08:00] VITALS: BP 131/63
[2019-07-22] MEDS: ENOXAPARIN 40MG/0.4ML SYR SUBCUT SCH (09:09)
[2019-07-22 12:20] VITALS: BP 111/54
[2019-07-22 12:38] LABS: BASOPHILS % 0.8 % (0.0-2.0); EOSINOPHILS % 1.2 % (0.0-5.0); HEMATOCRIT. 28.8 % (36.0-48.0); HEMOGLOBIN. 9.1 g/dL (12.0-16.0); LYMPHOCYTES % 20.4 % (20.0-50.0); MEAN CORPUSCULAR HEMOGLOBIN 24.4 pg (28.0-32.0); MEAN CORPUSCULAR VOLUME 77.5 fL (81.0-99.0); MEAN PLATELET VOLUME 7.7 fl (7.4-10.4); MONOCYTES % 11.5 % (2.0-8.0); NEUTROPHILS % 66.1 % (40.0-76.0); PLATELET 359 x1000/uL (130-400); RED BLOOD CELL COUNT 3.71 mill/uL (4.2-5.4); RED CELL DISTRIBUTION WIDTH 13.6 % (11.6-14.6)
[2019-07-22 12:43] LABS: CHLORIDE 106 mEq/L (98-107)
[2019-07-22 16:02] VITALS: BP 134/68
[2019-07-22 20:00] VITALS: BP 122/74
[2019-07-22] MEDS: RISPERIDONE 0.5MG TABLET PO SCH (20:48)
[2019-07-23] VITALS: BP 124/74
[2019-07-23] MEDS: HYDROCODONE/ACETAMINOPHEN 5/325MG TABLET PO PRN (03:03)
[2019-07-23 04:00] VITALS: BP 140/79
[2019-07-23 08:00] VITALS: BP 162/52
[2019-07-23 09:14] LABS: BASOPHILS % 0.7 % (0.0-2.0); EOSINOPHILS % 2.4 % (0.0-5.0); HEMATOCRIT. 28.1 % (36.0-48.0); HEMOGLOBIN. 8.8 g/dL (12.0-16.0); LYMPHOCYTES % 21.5 % (20.0-50.0); MEAN CORPUSCULAR HEMOGLOBIN 24.2 pg (28.0-32.0); MEAN CORPUSCULAR VOLUME 77.1 fL (81.0-99.0); MEAN PLATELET VOLUME 7.7 fl (7.4-10.4); NEUTROPHILS % 65.4 % (40.0-76.0); PLATELET 343 x1000/uL (130-400); RED BLOOD CELL COUNT 3.65 mill/uL (4.2-5.4); RED CELL DISTRIBUTION WIDTH 13.7 % (11.6-14.6)
[2019-07-23 09:23] LABS: CHLORIDE 107 mEq/L (98-107)
[2019-07-23] MEDS: ENOXAPARIN 40MG/0.4ML SYR SUBCUT SCH (09:31)
[2019-07-23 12:00] VITALS: BP 127/93
[2019-07-23 16:00] VITALS: BP 135/55
[2019-07-23 20:00] VITALS: BP 137/73
[2019-07-23] MEDS: RISPERIDONE 0.5MG TABLET PO SCH (21:24)
[2019-07-24] VITALS: BP 119/52
[2019-07-24] MEDS: ACETAMINOPHEN 325MG TABLET PO PRN (01:52)
[2019-07-24 04:00] VITALS: BP 136/66
[2019-07-24 08:00] VITALS: BP 140/76
[2019-07-24] MEDS: ENOXAPARIN 40MG/0.4ML SYR SUBCUT SCH (09:34)
[2019-07-24] MEDS: POTASSIUM CHLORIDE 20MEQ TABLET SR PO SCH ×2 (11:02→11:12)
[2019-07-24 12:00] VITALS: BP 122/63
[2019-07-24 12:57] VITALS: BP 120/63
[2019-07-24 16:00] VITALS: BP 102/56
[2019-07-24] MEDS ORDERED: HYDROCODONE/ACETAMINOPHEN 5/325MG TABLET PO PRN (16:00)
[2019-07-24 16:52] LABS: BASOPHILS % 0.8 % (0.0-2.0); EOSINOPHILS % 2.3 % (0.0-5.0); LYMPHOCYTES % 22.2 % (20.0-50.0); MEAN CORPUSCULAR HEMOGLOBIN 24.3 pg (28.0-32.0); MEAN CORPUSCULAR VOLUME 77.9 fL (81.0-99.0); MEAN PLATELET VOLUME 7.8 fl (7.4-10.4); MONOCYTES % 11.5 % (2.0-8.0); NEUTROPHILS % 63.2 % (40.0-76.0); PLATELET 380 x1000/uL (130-400); RED CELL DISTRIBUTION WIDTH 14.3 % (11.6-14.6)
[2019-07-24 17:00] LABS: CHLORIDE 105 mEq/L (98-107)
== END 2019-07-24 17:26 | DRG 481 ==
LOC: ER 21:57 → EDBD 21:57 → 7WST 07-14 04:00 → EDBEDREQ 07-14 04:03 → EDBEDREQTM 07-14 04:03 → ENRESERV 07-14 11:42
PROVIDERS: ADMIT Internal Medicine; ATTEND Internal Medicine
PROC: 0QSB06Z Reposition Right Lower Femur with Intramedullary Internal Fixation Device, Open Approach (ICD-10-PCS; principal; 2019-07-18)
PROC: BQ101ZZ Fluoroscopy of Right Hip using Low Osmolar Contrast (ICD-10-PCS; 2019-07-18)
DX: S72.141A Displaced intertrochanteric fracture of right femur, initial encounter for closed fracture (principal); E44.0 Moderate protein-calorie malnutrition; Z96.642 Presence of left artificial hip joint; I95.9 Hypotension, unspecified; E78.5 Hyperlipidemia, unspecified; F03.90 Unspecified dementia, unspecified severity, without behavioral disturbance, psychotic disturbance, mood disturbance, and anxiety; I11.9 Hypertensive heart disease without heart failure; I27.20 Pulmonary hypertension, unspecified; I48.0 Paroxysmal atrial fibrillation; J45.909 Unspecified asthma, uncomplicated; M85.80 Other specified disorders of bone density and structure, unspecified site; G90.8 Other disorders of autonomic nervous system; E87.6 Hypokalemia; D63.8 Anemia in other chronic diseases classified elsewhere; I35.8 Other nonrheumatic aortic valve disorders; H91.13 Presbycusis, bilateral; M47.896 Other spondylosis, lumbar region; W18.39XA Other fall on same level, initial encounter; I49.3 Ventricular premature depolarization; I70.0 Atherosclerosis of aorta; M19.90 Unspecified osteoarthritis, unspecified site; Z79.899 Other long term (current) drug therapy; Z91.81 History of falling; Z88.6 Allergy status to analgesic agent; Z88.8 Allergy status to other drugs, medicaments and biological substances; Y93.89 Activity, other specified; Y92.89 Other specified places as the place of occurrence of the external cause; Y99.8 Other external cause status; Z68.20 Body mass index [BMI] 20.0-20.9, adult
CPT/HCPCS: 36415; 71045; 72192; 73501; 73502; 76000; 80048; 80053; 82550; 82553; 83735; 83880; 84484; 85025; 85027; 86850; 86900; 93005; 93306; 93970; 97110; 97162; 97167; 97530; 97535; 99285; A6261; C1713; C1893; J0171; J0690; J1100; J1170; J1650; J2250; J2270; J2405; J2704; J2710; J3010; J3370; J3490; J7040

== ENCOUNTER 2019-11-04 00:04 | Emergency (ER) | payer OTHER ==
[~2019-11-04] VITALS: Ht 167.6 cm; Wt 54.0 kg
[2019-11-04] MEDS ORDERED: SODIUM CHLORIDE 0.9% 1,000 ML IV ONE (00:28)
[2019-11-04 00:56] LABS: EOSINOPHILS % 2.8 % (0.0-5.0); HEMATOCRIT. 40.9 % (36.0-48.0); HEMOGLOBIN. 12.9 g/dL (12.0-16.0); LYMPHOCYTES % 30.4 % (20.0-50.0); MEAN CORPUSCULAR HEMOGLOBIN 24.1 pg (28.0-32.0); MEAN CORPUSCULAR VOLUME 76.5 fL (81.0-99.0); MEAN PLATELET VOLUME 8.6 fl (7.4-10.4); MONOCYTES % 10.2 % (2.0-8.0); NEUTROPHILS % 55.6 % (40.0-76.0); PLATELET 221 x1000/uL (130-400); RED BLOOD CELL COUNT 5.34 mill/uL (4.2-5.4); RED CELL DISTRIBUTION WIDTH 14.9 % (11.6-14.6)
[2019-11-04 01:04] LABS: CHLORIDE 107 mEq/L (98-107)
[2019-11-04] MEDS ORDERED: LORAZEPAM 2MG/ML CPJ IV ONE (01:15)
[2019-11-04 10:07] VITALS: BP 133/63
== END 2019-11-04 10:11 | disposition home or self-care (01) ==
LOC: ER 00:04
DX: F03.90 Unspecified dementia, unspecified severity, without behavioral disturbance, psychotic disturbance, mood disturbance, and anxiety (principal); G93.40 Encephalopathy, unspecified; R55 Syncope and collapse; I48.91 Unspecified atrial fibrillation; I10 Essential (primary) hypertension; Z79.899 Other long term (current) drug therapy; Z88.6 Allergy status to analgesic agent; Z88.8 Allergy status to other drugs, medicaments and biological substances
CPT/HCPCS: 36415; 70450; 71045; 80053; 84484; 85025; 93005; 96361; 96374; 99285; J2060; J7030